=== PATIENT | male | born 1975 | race Caucasian/White ===

== ENCOUNTER 2024-11-01 18:37 | Observation (INO) ==
--- NOTE | 2024-11-01 19:03 | Emergency Department Note ---
Impression & Plan Fever, Pneumonia, Thrombocytopenia, Elevated serum creatinine, Hypoxia, Influenza A (H1N1) ED Provider Note HISTORY OF PRESENT ILLNESS: Patient is a 49-year-old male presenting with fever and fatigue. Patient reports that he developed a fever starting 3 days ago. Reports his temperatures up to 102. He has not taken any antipyretics for the fever today. He states that he recently traveled a month ago to [facility]. He does report substernal chest pain with a cough. Reports the cough has been for the last 3 days and has been nonproductive. Denies any significant shortness of breath. Denies any abdominal pain, nausea or vomiting. Denies any dysuria or hematuria. Denies any recent sick contact exposures. Denies any rashes. He denies any DVT or PE history. Denies any history of cardiac stents. He takes no medications. ROS: as above PHYSICAL EXAM: Constitutional: Patient appears in no acute distress. HENT: Head: Normocephalic and atraumatic. Eyes: EOMI, PERRL Mouth/Throat: Mucous membranes moist. Neck: Trachea midline. Neck supple. Cardiovascular: RRR, No murmurs, rubs or gallops. Intact distal pulses. Pulmonary/Chest: No respiratory distress. Breath sounds clear and equal bilaterally. No wheezes or rales. Abdominal: Abdomen soft, no tenderness, rebound or guarding. Musculoskeletal: No edema, tenderness or deformity noted. Skin: Warm and dry. No rash, erythema, pallor or cyanosis Psychiatric: Appropriate mood and affect for situation. Neurological: Alert and keenly responsive. CN II-XII grossly intact, moving all extremities equally and fully. MDM: - Vitals signs showed hypertension and tachycardia. Patient was significantly tachycardic on arrival to triage, but when brought back to an examination bay his heart rate is in the low 100s. - History obtained via patient. History as above. - Chronic conditions affecting care: None - Differential diagnoses include, but are not limited to: Congestive heart failure; acute coronary syndrome; COPD/asthma exacerbation; pulmonary edema; pulmonary embolism; pneumonia; pneumothorax; viral syndrome - Order placed for continuous cardiac monitoring. At this time, monitor showed rate of 87 bpm with normal sinus rhythm, per my interpretation. - External medical records reviewed. - EKG image interpreted by myself showed normal sinus rhythm. Rate 89 bpm. QT 330. No acute ischemic changes. - Laboratory workup interpreted by myself showed normal WBC; thrombocytopenia (plt 128); normal PT/INR; slight hyponatremia (Na 132); elevated creatinine (1.65 - unknown baseline); normal lactate; normal procalcitonin; normal lipase; normal troponin - CXR image reviewed by myself showed bilateral pneumonia, per my interpretation. Radiology notes patchy bilateral basilar pneumonia left greater than right. - CT PE negative for PE - Blood cultures obtained - Viral respiratory panel positive for influenza A H1N1 - Given patient's symptoms of fever and thrombocytopenia, lyme and babesiosis and anaplasmosis testing ordered. - Patient given 2g IV rocephin and 500 mg PO azithromycin for antibiotic coverage. - Patient given 1L NS.2 He does not meet sepsis criteria at this time. But his sepsis fluid volume calculation based on ideal body weight is 2018.10 mL. - Patient borderline hypoxic in the emergency department with saturations of 89 to 91%. He was started on 2 L nasal cannula. - Discussion was had with case fitter about patient's case and need for admission - Hospitalist consulted for admission - Patient admitted [facility] for further evaluation and management. ASSESSMENT AND PLAN: Diagnosis: Fever; pneumonia; elevated creatinine; thrombocytopenia; influenza A H1N1; hypoxia Plan: admit Past Med/Surg History Problem List (Updated 11/01/24 @ 21:36 by Winifred Magallanes MD) Influenza A (H1N1) (Acute) Hypoxia (Acute) Elevated serum creatinine (Acute) Thrombocytopenia (Acute) Pneumonia (Acute) Fever (Acute) Social History Smoking Status: Never smoker Preferred Language: Zambian Feels Safe at Home: Yes Home Meds Previous Rx's Medication Instructions Recorded diclofenac sodium 75 mg 75 mg PO BID PRN pain #30 tabs 07/20/19 tablet,delayed release Results & Data (ED) Vital Signs Vital Signs - 24 hr 11/01/24 18:56 11/01/24 19:12 11/01/24 19:23 Temperature 37.3 C Temperature Source Oral Pulse Rate 141 H 85 Pulse Rate [Apical] 81 Pulse Rhythm Regular Pulse Rhythm [Apical] Regular Pulse Strength Normal Pulse Strength [Apical] Normal Respiratory Rate 18 18 Respiratory Effort / Characteristics Non-Labored Spontaneous Non-Labored Spontaneous Respiratory Depth Normal Normal Respiratory Pattern Regular Regular Blood Pressure 158/82 H Blood Pressure [Right Arm] 152/116 H Blood Pressure Mean 107 Blood Pressure Mean [Right Arm] 128 Blood Pressure Position Sitting Blood Pressure Position [Right Arm] Lying Pulse Oximetry 91 93 Oxygen Delivery Method Room Air Oxygen Flow Rate 2 Sepsis Recent Fever Within 48 Hours Yes Sepsis New/Unexplained Change in Mental Status N/A Sepsis Action Taken by Nursing No Action Required 11/01/24 19:23 11/01/24 21:00 Temperature Temperature Source Pulse Rate 87 Pulse Rate [Apical] 79 Pulse Rhythm Regular Pulse Rhythm [Apical] Pulse Strength Pulse Strength [Apical] Respiratory Rate 18 19 Respiratory Effort / Characteristics Non-Labored Spontaneous Respiratory Depth Normal Respiratory Pattern Regular Blood Pressure Blood Pressure [Right Arm] 147/92 H Blood Pressure Mean Blood Pressure Mean [Right Arm] 110 Blood Pressure Position Blood Pressure Position [Right Arm] Pulse Oximetry 95 92 Oxygen Delivery Method Nasal Cannula Nasal Cannula Oxygen Flow Rate 2 2 Sepsis Recent Fever Within 48 Hours Sepsis New/Unexplained Change in Mental Status Sepsis Action Taken by Nursing Laboratory Data 11/01/24 19:10 11/01/24 19:10 Lab Results 11/01/24 11/01/24 Range/Units 19:07 19:10 WBC 5.27 (4.8-10.8) K/ul RBC 5.26 (4.70-6.10) M/uL Hgb 15.1 (14.0-18.0) g/dl Hct 45.2 (42.0-52.0) % MCV 85.9 (80.0-100.0) fL MCH 28.7 (25.0-34.0) pg MCHC 33.4 (32.0-36.0) g/dL RDW Std Deviation 39.9 (36.4-46.3) fL RDW Coeff of Kristina 12.8 (11.5-14.5) % Plt Count 128 L (130-400) K/uL MPV 10.2 (9.4-12.4) fL Immature Gran % (Auto) 0.2 % Neut % (Auto) 71.1 % Lymph % (Auto) 17.5 % Terry % (Auto) 10.4 % Eos % (Auto) 0.2 % Baso % (Auto) 0.6 % Neut # (Auto) 3.75 (1.40-6.50) K/uL Lymph # (Auto) 0.92 L (1.20-3.40) K/uL Terry # (Auto) 0.55 (0.11-0.59) K/uL Eos # (Auto) 0.01 (0.00-0.50) K/uL Baso # (Auto) 0.03 (0.00-0.20) K/uL Immature Gran # (Auto) 0.01 (0.01-0.20) K/uL PT 11.6 (9.0-12.0) Seconds INR 1.1 (0.9-1.1) Sodium 132 L (136-145) mmol/L Potassium 4.0 (3.5-5.1) mmol/L Chloride 98 (98-107) mmol/L Carbon Dioxide 25 (21-32) mmol/L Anion Gap 9 (3-11) BUN 16 (6-23) mg/dl Creatinine 1.65 H (0.6-1.4) mg/dl Est Cr Clr Drug Dosing 54.9 ml/min eGFR 49.96 BUN/Creatinine Ratio 9.7 L (10-20) Glucose 97 (70-99(Fasting)) mg/dl Lactate 1.0 (0.4-2.0) mmol/L Calcium 9.3 (8.6-10.3) mg/dl Magnesium 1.8 (1.7-2.4) mg/dl Total Bilirubin 0.8 (0.2-1.0) mg/dl AST 21 (13-39) U/L ALT 15 (7-52) U/L Alkaline Phosphatase 73 (34-104) U/L Troponin I High Sens < 2.3 (0-20) pg/ml Total Protein 8.1 (6.0-8.3) gm/dl Albumin 4.4 (3.4-5.0) gm/dl Globulin 3.7 (2.5-4.0) gm/dl Albumin/Globulin Ratio 1.2 (0.9-2) Lipase 45 (11-82) U/L Procalcitonin 0.10 (0-0.5) ng/ml Nasal Influ A H1 2008 PCR DETECTED A (NotDetected) Adenovirus (PCR) Not Detected (NotDetected) Babesia Smear See Comment B. pertussis DNA (PCR) Not Detected (NotDetected) B.parapertussis DNA PCR Not Detected (NotDetected) C. pneumoniae DNA (PCR) Not Detected (NotDetected) Coronavirus OC43 (PCR) Not Detected (NotDetected) Coronavirus HKU1 (PCR) Not Detected (NotDetected) Coronavirus 229E (PCR) Not Detected (NotDetected) SARS-CoV-2 (PCR) Not Detected (NotDetected) Coronavirus NL63 (PCR) Not Detected (NotDetected) Human Metapneumovir PCR Not Detected (NotDetected) Influenza A (H3) PCR DETECTED A (NotDetected) Influenza Type B (PCR) Not Detected (NotDetected) M. pneumoniae (PCR) Not Detected (NotDetected) Parainfluenza 1 (PCR) Not Detected (NotDetected) Parainfluenza 2 (PCR) Not Detected (NotDetected) Parainfluenza 3 (PCR) Not Detected (NotDetected) Parainfluenza 4 (PCR) Not Detected (NotDetected) RSV (PCR) Not Detected (NotDetected) Entero/Rhino (PCR) Not Detected (NotDetected) Administered Medications Discontinued Medications Azithromycin (Azithromycin 250 Mg Tab) 500 mg PO NOW ONE Stop: 11/01/24 20:38 Last Admin: 11/01/24 20:47 Dose: 500 mg Documented By: FABIO Sodium Chloride (Nss) 1,000 mls @ 999 mls/hr IV .Q1H1M ONE Stop: 11/01/24 20:07 Last Infusion: 11/01/24 21:24 Dose: Infused Documented By: Admin: 11/01/24 19:17 Dose: 999 mls/hr Documented By: FABIO Ceftriaxone Sodium (Rocephin) 2,000 mg in 50 mls @ 100 mls/hr IV NOW STA Stop: 11/01/24 21:06 Last Infusion: 11/01/24 21:24 Dose: Infused Documented By: Admin: 11/01/24 20:49 Dose: 100 mls/hr Documented By: FABIO Ioversol (Optiray 320 125ml) 74 ml IV ONCE ONE Stop: 11/01/24 20:03 Last Admin: 11/01/24 20:02 Dose: 74 ml Documented By: MIREYA Ondansetron HCl (Ondansetron Inj 2 Mg/Ml 2 Ml Vial) 4 mg IV NOW STA Stop: 11/01/24 19:08 Last Admin: 11/01/24 19:18 Dose: 4 mg Documented By: [facility] Imaging Data Radiologist's Impression: Chest X-Ray 11/01/24 19:00 EXAM: Radiograph of the Chest 1 View INDICATION: Fever TECHNIQUE: Frontal view of the chest. COMPARISON: No relevant prior studies available. FINDINGS: Lungs and pleural spaces: There is patchy left retrocardiac infiltrate. Linear scarring or atelectasis right lung base and mild patchy medial right lower lobe infiltrate. No pleural effusion or pneumothorax. Heart: Shape and configuration within normal limits allowing for technique. Mediastinum: Normal contour. Bones/joints: No fracture, erosion or dislocation. Soft tissues: No abnormality noted. No radiopaque foreign body noted. Upper abdomen: No abnormality noted. IMPRESSION: Patchy bilateral basilar pneumonia left greater than right. Follow-up until resolution recommended. ACT 112: N/A Electronically signed by Britt Lowe 11-01-2024 7:40 PM Chest CTA 11/01/24 19:48 Exam(s): CTA CHEST IV Amt: 74ml opti 320 EXAM: CT Angiography Chest With Intravenous Contrast CLINICAL HISTORY: Evaluate for potential PE. TECHNIQUE: Axial computed tomographic angiography images of the chest with intravenous contrast. CTDI is 36.21 mGy and DLP is 739.93 mGy-cm. Automated exposure control was utilized for the study. A dose lowering technique was utilized adhering to the principles of ALARA. MIP reconstructed images were created and reviewed. COMPARISON: No relevant prior studies available. FINDINGS: Limitations: There is diffuse respiratory artifact, which degrades image quality throughout the examination. Pulmonary arteries: Accounting for diffuse respiratory artifact and suboptimal heterogeneous enhancement of the subsegmental pulmonary artery branches, there is no definite evidence for pulmonary embolism. Aorta: No acute findings. No thoracic aortic aneurysm. Lungs: Curvilinear changes noted involving both lower lobes, the inferior right middle lobe and lingular segments. No mass. No consolidation. Pleural space: Unremarkable. No significant effusion. No pneumothorax. Heart: Unremarkable. No cardiomegaly. No significant pericardial effusion. Bones/joints: No acute fracture. No dislocation. Soft tissues: Unremarkable. Lymph nodes: Unremarkable. No enlarged lymph nodes. IMPRESSION: 1. Accounting for diffuse respiratory artifact and suboptimal heterogeneous enhancement of the subsegmental pulmonary artery branches, there is no definite evidence for pulmonary embolism. 2. Curvilinear changes noted involving both lower lobes, the inferior right middle lobe and lingular segments. Favor subsegmental atelectasis with expiratory lung volumes; however, subtle coexisting infection the lower lobes is difficult to entirely exclude. Please correlate with potential clinical history not provided and laboratory findings. No pleural effusion or pneumothorax. Electronically signed by: Anuel Raines MD 11/01/24 21:31 PM Discharge Plan Visit Data Chief Complaint: Fever Stated Complaint: FEVER,?DEHYDRATED,NOT EATING ED Provider: Winifred Magallanes Discharge Problem: Fever, Pneumonia, Thrombocytopenia, Elevated serum creatinine, Hypoxia, Influenza A (H1N1) Forms Stand Alone Forms: [facility] Prescriptions Prescriptions: No Action diclofenac sodium 75 mg tablet,delayed release (DR/EC) 75 mg PO BID PRN (Reason: pain) Qty: 30 0RF Referrals Referrals: PCP,NO [Primary Care Provider] -
[2024-11-01] MEDS: SODIUM CHLORIDE 0.9% 1,000 ML IV ONE (19:17)
[2024-11-01] MEDS: ONDANSETRON INJ 2 MG/ML 2 ML VIAL IV STA (19:18)
[2024-11-01 19:33] LABS: Basophils # (auto) 0.03 K/uL (0.00-0.20); Basophils % (auto) 0.6 %; Eosinophils # (auto) 0.01 K/uL (0.00-0.50); Eosinophils % (auto) 0.2 %; Hematocrit (blood only) 45.2 % (42.0-52.0); Hemoglobin 15.1 g/dl (14.0-18.0); Immature Granulocytes # (auto) 0.01 K/uL (0.01-0.20); Immature Granulocytes % (auto) 0.2 %; Lymphocytes # (auto) 0.92 K/uL (1.20-3.40); Lymphocytes % (auto) 17.5 %; Mean Corpuscular Hemoglobin 28.7 pg (25.0-34.0); Mean Corpuscular Hgb Conc 33.4 g/dL (32.0-36.0); Mean Corpuscular Volume 85.9 fL (80.0-100.0); Mean Platelet Volume 10.2 fL (9.4-12.4); Monocytes # (auto) 0.55 K/uL (0.11-0.59); Monocytes % (auto) 10.4 %; Neutrophils # (auto) 3.75 K/uL (1.40-6.50); Neutrophils % (auto) 71.1 %; Platelet Count 128 K/uL (130-400); RDW Coefficient of Variation 12.8 % (11.5-14.5); RDW Standard Deviation 39.9 fL (36.4-46.3); Red Blood Count 5.26 M/uL (4.70-6.10); White Blood Count 5.27 K/ul (4.8-10.8)
--- NOTE | 2024-11-01 19:41 | XRay Report ---
EXAM: Radiograph of the Chest 1 View INDICATION: Fever TECHNIQUE: Frontal view of the chest. COMPARISON: No relevant prior studies available. FINDINGS: Lungs and pleural spaces: There is patchy left retrocardiac infiltrate. Linear scarring or atelectasis right lung base and mild patchy medial right lower lobe infiltrate. No pleural effusion or pneumothorax. Heart: Shape and configuration within normal limits allowing for technique. Mediastinum: Normal contour. Bones/joints: No fracture, erosion or dislocation. Soft tissues: No abnormality noted. No radiopaque foreign body noted. Upper abdomen: No abnormality noted. IMPRESSION: Patchy bilateral basilar pneumonia left greater than right. Follow-up until resolution recommended. ACT 112: N/A Electronically signed by Britt Lowe 11-01-2024 7:40 PM
[2024-11-01 19:48] LABS: Alanine Aminotransferase 15 U/L (7-52); Albumin Globulin Ratio 1.2 (0.9-2); Albumin Level 4.4 gm/dl (3.4-5.0); Alkaline Phosphatase 73 U/L (34-104); Anion Gap 9 (3-11); Aspartate Aminotransferase 21 U/L (13-39); BUN Creatinine Ratio 9.7 (10-20); Bilirubin,Total 0.8 mg/dl (0.2-1.0); Blood Urea Nitrogen 16 mg/dl (6-23); Calcium 9.3 mg/dl (8.6-10.3); Carbon Dioxide 25 mmol/L (21-32); Chloride 98 mmol/L (98-107); Creatinine Clr Calc Pharmacy 54.9 ml/min; Globulin 3.7 gm/dl (2.5-4.0); Glucose 97 mg/dl (70-99(Fasting)); Lipase 45 U/L (11-82); Magnesium 1.8 mg/dl (1.7-2.4); Sodium 132 mmol/L (136-145); Total Protein 8.1 gm/dl (6.0-8.3)
[2024-11-01 19:53] LABS: Troponin I High Sensitivity < 2.3 pg/ml (0-20)
[2024-11-01 19:54] LABS: INR 1.1 (0.9-1.1); Prothrombin Time 11.6 Seconds (9.0-12.0)
[2024-11-01] MEDS: OPTIRAY 320 125ml IV ONE (20:02)
[2024-11-01] MEDS: AZITHROMYCIN 250 MG TAB PO ONE (20:47)
[2024-11-01] MEDS: cefTRIAXone SODIUM 2,000 MG/50 ML BAG IV STA (20:49)
[2024-11-01 21:29] LABS: Adenovirus PCR Not Detected (NotDetected); Bordetella parapertussis PCR Not Detected (NotDetected); Bordetella pertussis PCR Not Detected (NotDetected); Chlamydia pneumoniae PCR Not Detected (NotDetected); Coronavirus 229E PCR Not Detected (NotDetected); Coronavirus CoV-2 (COVID19)PCR Not Detected (NotDetected); Coronavirus HKU1 PCR Not Detected (NotDetected); Coronavirus NL63 PCR Not Detected (NotDetected); Coronavirus OC43PCR Not Detected (NotDetected); Human Metapneumovirus PCR Not Detected (NotDetected); Influenza A (H1 2009) PCR DETECTED (NotDetected); Influenza A (H3) PCR DETECTED (NotDetected); Influenza B PCR Not Detected (NotDetected); Mycoplasma pneumoniae PCR Not Detected (NotDetected); Parainfluenza Virus 1 PCR Not Detected (NotDetected); Parainfluenza Virus 2 PCR Not Detected (NotDetected); Parainfluenza Virus 3 PCR Not Detected (NotDetected); Parainfluenza Virus 4 PCR Not Detected (NotDetected); Respiratory Syncytial VirusPCR Not Detected (NotDetected); Rhinovirus/Enterovirus PCR Not Detected (NotDetected)
--- NOTE | 2024-11-01 21:32 | CT Scan Report ---
Exam(s): CTA CHEST IV Amt: 74ml opti 320 EXAM: CT Angiography Chest With Intravenous Contrast CLINICAL HISTORY: Evaluate for potential PE. TECHNIQUE: Axial computed tomographic angiography images of the chest with intravenous contrast. CTDI is 36.21 mGy and DLP is 739.93 mGy-cm. Automated exposure control was utilized for the study. A dose lowering technique was utilized adhering to the principles of ALARA. MIP reconstructed images were created and reviewed. COMPARISON: No relevant prior studies available. FINDINGS: Limitations: There is diffuse respiratory artifact, which degrades image quality throughout the examination. Pulmonary arteries: Accounting for diffuse respiratory artifact and suboptimal heterogeneous enhancement of the subsegmental pulmonary artery branches, there is no definite evidence for pulmonary embolism. Aorta: No acute findings. No thoracic aortic aneurysm. Lungs: Curvilinear changes noted involving both lower lobes, the inferior right middle lobe and lingular segments. No mass. No consolidation. Pleural space: Unremarkable. No significant effusion. No pneumothorax. Heart: Unremarkable. No cardiomegaly. No significant pericardial effusion. Bones/joints: No acute fracture. No dislocation. Soft tissues: Unremarkable. Lymph nodes: Unremarkable. No enlarged lymph nodes. IMPRESSION: 1. Accounting for diffuse respiratory artifact and suboptimal heterogeneous enhancement of the subsegmental pulmonary artery branches, there is no definite evidence for pulmonary embolism. 2. Curvilinear changes noted involving both lower lobes, the inferior right middle lobe and lingular segments. Favor subsegmental atelectasis with expiratory lung volumes; however, subtle coexisting infection the lower lobes is difficult to entirely exclude. Please correlate with potential clinical history not provided and laboratory findings. No pleural effusion or pneumothorax. Electronically signed by: Anuel Raines MD 11/01/24 21:31 PM
--- NOTE | 2024-11-01 22:19 | History & Physical Report ---
Date of Service November 01, 2024 Assessment & Plan (1) Influenza A (H1N1): (2) Pneumonia: (3) Thrombocytopenia: (4) Renal insufficiency: Plan 49-year-old male with unremarkable PMHx presenting for fever x 2 days. ED evaluation reveals no leukocytosis, platelets 128 with stable H&H; PT/INR WNL; sodium 132, creatinine 1.65, ratio 9.7; troponin <2.3; Pro-Gabriel 0.10; BioFire positive influenza A; UA pending; CXR with patchy bilateral basilar PNA L >R; chest CTA no PE, subsegmental atelectasis with expiratory low lung volumes, possible infection EKG NSR at 89 bpm. Provided with 1L NSS, ondansetron, Rocephin, and azithromycin in ED. #Influenza A/? PNA Fever 102 F x 2 days is main concern; Was requiring 2L O2 for hypoxia. Does not receive annual influenza vaccine. - CBC w/o leukocytosis but with Plt 128; CMP Na 132, Cr 1.65, procal 0.10; nasal swab/BioFire positive for influenza A; CXR w/ evidence PNA and CTA chest w/ ? subsegmental atelectasis vs infection in lower lobes - Droplet precautions - Start Tamiflu 30mg BID (CrCl 54.9 mL/min) - Given CTA chest findings + CXR - Ceftriaxone IV + Azithromycin po - DuoNeb q4hr + prn; Tylenol for fever/pain; Mucinex prn congestion - IC + FV; O2 prn, wean as patient tolerates if needed- No O2 at baseline - CBC + CMP am #Thrombocytopenia New finding; patient w/o history of such. Recent bleeding ~ 2 weeks ago with blood being passed through stool on occasion, pt unsure if he has hemorrhoids. Colonoscopy ~ 2.5 years ago was WNL. ? Tick exposure vs contributed by renal insufficiency. - CBC H/H stable (15.1/45.2), Plt 132 - Tick panel pending - CBC am #Renal insufficiency/S/p L nephrectomy (donor) H/o L nephrectomy ~ 2.5 years ago (donor for mother); Some decrease in oral intake, does follow low Na diet. - Cr 1.65, BUN 16, ratio 9.7; UA pending - CMP am - Given 1L NSS in ED; continue Plasmalyte @ 100mL/hr - Defer nephrotoxic agents; Tylenol prn - If Cr continues to increase, consider renal US Dispo: Admit, med/tele VTE prophylaxis: SCDs This document was dictated utilizing [employer]nos. Please excuse any grammatical errors that may be secondary to use of this software. Admission and Anticipated Discharge Date Admission Date: 11/01/2024 History of Present Illness Chief Complaint: Fever Primary Care Provider: NO PCP 49-year-old male with unremarkable PMHx presenting for fever x 2 days. States that for probably 2 days [employer], patient has had a fever 102 F consistently and has not taken antipyretics to try to alleviate this. Only other complaint is that he does have a cough that is nonproductive in nature. Some rhinorrhea when leaning forward and minimal sinus congestion. Does not feel that he has been SOB but has not been getting up and moving around a lot since having a fever. Denies chest pain, palpitations, abdominal pain, N/V/D/C, or LUTS. Does admit to approximately 2 weeks ago having blood passed in stool but patient unsure if he has hemorrhoids, does not feel that he has to strain. Colonoscopy approximately 2 and half years ago without any concerning findings, also with left nephrectomy approximately 2 years ago as he donated his L kidney to his mother. 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 ED evaluation reveals no leukocytosis, platelets 128 with stable H&H; PT/INR WNL; sodium 132, creatinine 1.65, ratio 9.7; troponin <2.3; Pro-Gabriel 0.10; BioFire positive influenza A; UA pending; CXR with patchy bilateral basilar PNA L >R; chest CTA no PE, subsegmental atelectasis with expiratory low lung volumes, possible infection EKG NSR at 89 bpm. Provided with 1L NSS, ondansetron, Rocephin, and azithromycin in ED. Please see Dr. Rojas's attestation for adjustments/additions to treatment plan. Allergies Allergy/AdvReac Type Severity Reaction Status Date / Time No Known Allergies Allergy Unverified 11/01/24 22:40 Home Medications Medication Instructions Recorded Confirmed Type No Known Home Medications 11/01/24 11/01/24 History Past Med/Surg History Problem List (Updated 11/01/24 @ 23:07 by Dariana Adames PA-C) Renal insufficiency Influenza A (H1N1) (Acute) Hypoxia (Acute) Elevated serum creatinine (Acute) Thrombocytopenia (Acute) Pneumonia (Acute) Fever (Acute) Social History Smoking Status: Never smoker Preferred Language: Mexican Feels Safe at Home: Yes Review of Systems Review of Systems: All systems reviewed & are unremarkable except as noted in Subjective Physical Exam Physical Exam: General: No acute distress Skin: Warm and dry Head: Normocephalic, atraumatic Eyes: PERRL, conjunctivae clear, sclera non-icteric ENT: External ear and ear canal without swelling; nose atraumatic; good dent ition, tongue normal appearance, pharynx normal Neck: Supple, no LAD Cardio: RRR, no M/G/R, S1 and S2 normal Resp: No respiratory distress, Lungs CTA in all lobes bilaterally, no wheezes, rales, or rhonchi Abdomen: Soft, symmetric, nontender; No visible lesions or scars; no distention; No masses or hepatosplenomegaly; Bowel sounds normoactive MSK: No deformities; pulses palpable and equal; no edema. Neuro: Awake, alert; CN grossly intact Psych: Appropriate mood and affect; good judgement and insight. present in room at time of visit. Results & Data Results & Data Vital Signs (Past 12 Hours) Vital Signs Temp Pulse Pulse Resp BP BP Pulse Ox 11/01/24 21:00 79 19 147/92 H 92 11/01/24 19:23 87 18 95 11/01/24 19:23 81 18 152/116 H 93 11/01/24 19:12 85 11/01/24 18:56 37.3 C 141 H 18 158/82 H 91 O2 Del Method O2 Flow Rate 11/01/24 21:00 Nasal Cannula 2 11/01/24 19:23 Nasal Cannula 2 11/01/24 19:23 2 11/01/24 19:12 11/01/24 18:56 Room Air Laboratory Results 11/01/24 19:31 Aerobic Blood Culture - Pending Blood Anaerobic Blood Culture - Pending 11/01/24 19:10 Aerobic Blood Culture - Pending Blood Anaerobic Blood Culture - Pending 11/01/24 11/01/24 19:10 19:07 WBC 5.27 RBC 5.26 Hgb 15.1 Hct 45.2 MCV 85.9 MCH 28.7 MCHC 33.4 RDW Std Deviation 39.9 RDW Coeff of Kristina 12.8 Plt Count 128 L MPV 10.2 Immature Gran % (Auto) 0.2 Neut % (Auto) 71.1 Lymph % (Auto) 17.5 [place] % (Auto) 10.4 Eos % (Auto) 0.2 Baso % (Auto) 0.6 Neut # (Auto) 3.75 Lymph # (Auto) 0.92 L [place] # (Auto) 0.55 Eos # (Auto) 0.01 Baso # (Auto) 0.03 Immature Gran # (Auto) 0.01 PT 11.6 INR 1.1 Sodium 132 L Potassium 4.0 Chloride 98 Carbon Dioxide 25 Anion Gap 9 BUN 16 Creatinine 1.65 H Est Cr Clr Drug Dosing 54.9 eGFR 49.96 BUN/Creatinine Ratio 9.7 L Glucose 97 Lactate 1.0 Calcium 9.3 Magnesium 1.8 Total Bilirubin 0.8 AST 21 ALT 15 Alkaline Phosphatase 73 Troponin I High Sens < 2.3 Total Protein 8.1 Albumin 4.4 Globulin 3.7 Albumin/Globulin Ratio 1.2 Lipase 45 Procalcitonin 0.10 Nasal Influ A H1 2008 PCR DETECTED A Adenovirus (PCR) Not Detected Anaplasma Smear See Comment Babesia Smear See Comment B. pertussis DNA (PCR) Not Detected B.parapertussis DNA PCR Not Detected Lyme Disease Screen Negative C. pneumoniae DNA (PCR) Not Detected Coronavirus OC43 (PCR) Not Detected Coronavirus HKU1 (PCR) Not Detected Coronavirus 229E (PCR) Not Detected SARS-CoV-2 (PCR) Not Detected Coronavirus NL63 (PCR) Not Detected Human Metapneumovir PCR Not Detected Influenza A (H3) PCR DETECTED A Influenza Type B (PCR) Not Detected M. pneumoniae (PCR) Not Detected Parainfluenza 1 (PCR) Not Detected Parainfluenza 2 (PCR) Not Detected Parainfluenza 3 (PCR) Not Detected Parainfluenza 4 (PCR) Not Detected RSV (PCR) Not Detected Entero/Rhino (PCR) Not Detected Diagnostic Findings Chest X-Ray 11/01/24 19:00 EXAM: Radiograph of the Chest 1 View INDICATION: Fever TECHNIQUE: Frontal view of the chest. COMPARISON: No relevant prior studies available. FINDINGS: Lungs and pleural spaces: There is patchy left retrocardiac infiltrate. Linear scarring or atelectasis right lung base and mild patchy medial right lower lobe infiltrate. No pleural effusion or pneumothorax. Heart: Shape and configuration within normal limits allowing for technique. Mediastinum: Normal contour. Bones/joints: No fracture, erosion or dislocation. Soft tissues: No abnormality noted. No radiopaque foreign body noted. Upper abdomen: No abnormality noted. IMPRESSION: Patchy bilateral basilar pneumonia left greater than right. Follow-up until resolution recommended. ACT 112: N/A Electronically signed by Britt Lowe 11-01-2024 7:40 PM Chest CTA 11/01/24 19:48 Exam(s): CTA CHEST IV Amt: 74ml opti 320 EXAM: CT Angiography Chest With Intravenous Contrast CLINICAL HISTORY: Evaluate for potential PE. TECHNIQUE: Axial computed tomographic angiography images of the chest with intravenous contrast. CTDI is 36.21 mGy and DLP is 739.93 mGy-cm. Automated exposure control was utilized for the study. A dose lowering technique was utilized adhering to the principles of ALARA. MIP reconstructed images were created and reviewed. COMPARISON: No relevant prior studies available. FINDINGS: Limitations: There is diffuse respiratory artifact, which degrades image quality throughout the examination. Pulmonary arteries: Accounting for diffuse respiratory artifact and suboptimal heterogeneous enhancement of the subsegmental pulmonary artery branches, there is no definite evidence for pulmonary embolism. Aorta: No acute findings. No thoracic aortic aneurysm. Lungs: Curvilinear changes noted involving both lower lobes, the inferior right middle lobe and lingular segments. No mass. No consolidation. Pleural space: Unremarkable. No significant effusion. No pneumothorax. Heart: Unremarkable. No cardiomegaly. No significant pericardial effusion. Bones/joints: No acute fracture. No dislocation. Soft tissues: Unremarkable. Lymph nodes: Unremarkable. No enlarged lymph nodes. IMPRESSION: 1. Accounting for diffuse respiratory artifact and suboptimal heterogeneous enhancement of the subsegmental pulmonary artery branches, there is no definite evidence for pulmonary embolism. 2. Curvilinear changes noted involving both lower lobes, the inferior right middle lobe and lingular segments. Favor subsegmental atelectasis with expiratory lung volumes; however, subtle coexisting infection the lower lobes is difficult to entirely exclude. Please correlate with potential clinical history not provided and laboratory findings. No pleural effusion or pneumothorax. Electronically signed by: Anuel Raines MD 11/01/24 21:31 PM Medications Administered NSS 1L Ondansetron 4 megs IV Ceftriaxone 2 g IV Azithromycin 500 mg p.o. ECG Additional Comments: NSR, nonspecific T wave abnormality 89 bpm, FL 152, QRS 80, QT/QTc 330/401, PRT 40/36/32 Code Status & VTE Plan Code Status Full Supervising Physician Co-Signing Physician Notes Attending addendum: I have physically seen this patient, have supervised the GLORIA's activities, and agree with the H&P unless as otherwise noted. Assessment and Plan: The patient is a 49-year-old male with past medical history significant for history of left nephrectomy as an organ donor, who presents to the emergency department with 3 days of feeling generally unwell, and 2 days of temperature up to 102 F. Significant evaluation in the emergency department includes platelets of 128, sodium 132, creatinine 1.65, BioFire testing positive for influenza A H1 2009 pandemic strain, chest x-ray suggestive of patchy bilateral basilar pneumonia, left greater than right, and chest CTA negative for PE. From the ED patient received the following: Normal saline 1 L bolus, Zofran 4 mg IV, ceftriaxone 2 g IV, and azithromycin 100 mg p.o. [facility] #[facility]fluenza A 2009 pandemic strain/bibasilar secondary bacterial pneumonia, right greater than left- Start Tamiflu renally adjusted dosing Droplet precautions Duonebs every 4 hours while awake and every 2 hours when necessary. Mucinex 600 mg p.o. every 12 hours Incentive spirometry Nasal cannula oxygen, titrate to keep pulse ox 92-94% Placed on ceftriaxone 2 g IV every 24 hours, and azithromycin 500 mg daily #Renal insufficiency/history of left nephrectomy as organ donor- Creatinine 1.65, with no baseline available Aggressively hydrate with IV fluids, recheck laboratories in the morning, if not significantly improved, pursue imaging at that time Status post 1 L normal saline bolus from the ED #Thrombocytopenia- Platelets 128 on admission, with no baseline Contributing factors including but not limited to: Viral process, tick exposure, renal insufficiency, others Pending results if lower in the morning, would do a peripheral smear PG Care Time/CCT Total # of Minutes Spent Total Time Spent with Patient: Total time spent is greater than 50% in coordination of care (as documented) at patient's floor/unit and/or counseling patient: Coding Level of Care Code 50449 INT INP/OBS CARE 3/75MIN Diagnoses Influenza A (H1N1) J10.1 Pneumonia J18.9 Thrombocytopenia D69.6 Renal insufficiency N28.9
[2024-11-01] MEDS ORDERED: guaiFENesin 600 MG TABCR PO PRN (23:08)
[2024-11-01] MEDS ORDERED: ALBUT/IPRATROP 3MG/0.5MG NEB 3 ML VIAL NEB PRN (23:08)
[2024-11-01] MEDS: PLASMA-LYTE A 1,000 ML IV SCH (23:46)
[2024-11-02] MEDS: OSELTAMIVIR PHOSPHATE SUSP 30 MG/5 ML UDP PO STA (00:28)
[2024-11-02] MEDS ORDERED: ONDANSETRON INJ 2 MG/ML 2 ML VIAL IV PRN (01:27)
[2024-11-02] MEDS ORDERED: POLYETHYLENE (MIRALAX) 17 GM PACK PO PRN (01:27)
[2024-11-02 04:41] VITALS: TEMP 99.3
[2024-11-02] MEDS: ACETAMINOPHEN 325 MG TAB PO PRN (04:43)
[2024-11-02 04:46] LABS: Hematocrit (blood only) 40.3 % (42.0-52.0); Hemoglobin 13.6 g/dl (14.0-18.0); Mean Corpuscular Hemoglobin 28.9 pg (25.0-34.0); Mean Corpuscular Hgb Conc 33.7 g/dL (32.0-36.0); Mean Corpuscular Volume 85.6 fL (80.0-100.0); Mean Platelet Volume 10.6 fL (9.4-12.4); Platelet Count 111 K/uL (130-400); RDW Coefficient of Variation 12.8 % (11.5-14.5); RDW Standard Deviation 39.9 fL (36.4-46.3); Red Blood Count 4.71 M/uL (4.70-6.10); White Blood Count 4.26 K/ul (4.8-10.8)
[2024-11-02 04:59] LABS: Albumin Globulin Ratio 1.3 (0.9-2); Albumin Level 3.7 gm/dl (3.4-5.0); BUN Creatinine Ratio 10.3 (10-20); Bilirubin,Total 0.6 mg/dl (0.2-1.0); Calcium 8.2 mg/dl (8.6-10.3); Creatinine Clr Calc Pharmacy 58.5 ml/min; Globulin 2.9 gm/dl (2.5-4.0); Potassium 4.1 mmol/L (3.5-5.1); Total Protein 6.6 gm/dl (6.0-8.3)
[2024-11-02] MEDS: OSELTAMIVIR PHOSPHATE SUSP 30 MG/5 ML UDP PO SCH (09:59)
--- NOTE | 2024-11-02 14:14 | Discharge Summary ---
Discharge Summary Date of Service November 02, 2024 Principal Dx & Hospital Course #1 = Principal Diagnosis (1) Influenza A (H1N1): (2) Thrombocytopenia: (3) Renal insufficiency: Plan 49-year-old male with unremarkable PMHx presented for fever, cough, body aches x 2 days. BioFire testing positive for Influenza A on admission. ED evaluation reveals no leukocytosis, platelets 128 with stable H&H; PT/INR WNL; sodium 132, creatinine 1.65, ratio 9.7; troponin <2.3; Pro-Gabriel 0.10; BioFire positive influenza A; UA pending; CXR with patchy bilateral basilar PNA L >R; chest CTA no PE, subsegmental atelectasis with expiratory low lung volumes, possible infection EKG NSR at 89 bpm. Provided with 1L NSS, ondansetron, Rocephin, and azithromycin in ED. #Influenza A - Required 2L O2 for hypoxia on admission, weaned down and stable on room air now - CXR with concern for pneumonia, chest CTA favors subsegmental atelectasis with expiratory lung volumes - Received ceftriaxone and azithromycin on admission; antibiotics discontinued given low suspicion for bacterial process - Continue Tamiflu 30 mg BID through 11/06 - Continue Tylenol PRN fever/body aches/headache, Zofran PRN nausea, Mucinex PRN cough/congestion, incentive spirometry #Thrombocytopenia New finding; patient w/o history of such. Recent bleeding ~ 2 weeks ago with blood being passed through stool on occasion, pt unsure if he has hemorrhoids. Colonoscopy ~ 2.5 years ago was WNL Suspect viral suppression vs contributed by renal insufficiency Stable #Renal insufficiency/S/p L nephrectomy (donor) H/o L nephrectomy ~ 2.5 years ago (donor for mother); Some decrease in oral intake, does follow low Na diet - Given 1L NSS in ED; continue Plasmalyte @ 100mL/hr - Cr 1.55, BUN 16 on day of discharge - Defer nephrotoxic agents; Tylenol prn Dispo: discharged home 11/02 VTE prophylaxis: SCDs Notes For Next Care Provider Suspect thrombocytopenia due to viral suppression from influenza A. If persists outpatient, recommend further workup Medication Changes From Visit Tamiflu 30 mg PO BID through 11/06 Zofran 4 mg q6h prn nausea Admission HPI Per Admitting Provider 49-year-old male with unremarkable PMHx presenting for fever x 2 days. 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 Only other complaint is that he does have a cough that is nonproductive in nature. Some rhinorrhea when leaning forward and minimal sinus congestion. Does not feel that he has been SOB but has not been getting up and moving around a lot since having a fever. Denies chest pain, palpitations, abdominal pain, N/V/D/C, or LUTS. Does admit to approximately 2 weeks ago having blood passed in stool but patient unsure if he has hemorrhoids, does not feel that he has to strain. Colonoscopy approximately 2 and half years ago without any concerning findings, also with left nephrectomy approximately 2 years ago as he donated his L kidney to his mother. 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 ED evaluation reveals no leukocytosis, platelets 128 with stable H&H; PT/INR WNL; sodium 132, creatinine 1.65, ratio 9.7; troponin <2.3; Pro-Gabriel 0.10; B ioFire positive influenza A; UA pending; CXR with patchy bilateral basilar PNA L >R; chest CTA no PE, subsegmental atelectasis with expiratory low lung volumes, possible infection EKG NSR at 89 bpm. Provided with 1L NSS, ondansetron, Rocephin, and azithromycin in ED. Please see Dr. Rojas's attestation for adjustments/additions to treatment plan. Admission Exam Per Admitting Provider General: No acute distress Skin: Warm and dry Head: Normocephalic, atraumatic Eyes: PERRL, conjunctivae clear, sclera non-icteric ENT: External ear and ear canal without swelling; nose atraumatic; good dentition, tongue normal appearance, pharynx normal Neck: Supple, no LAD Cardio: RRR, no M/G/R, S1 and S2 normal Resp: No respiratory distress, Lungs CTA in all lobes bilaterally, no wheezes, rales, or rhonchi Abdomen: Soft, symmetric, nontender; No visible lesions or scars; no distention; No masses or hepatosplenomegaly; Bowel sounds normoactive MSK: No deformities; pulses palpable and equal; no edema. Neuro: Awake, alert; CN grossly intact Psych: Appropriate mood and affect; good judgement and insight. present in room at time of visit. Discharge Exam General: No acute distress, nondiaphoretic, well-developed, well-nourished. Cardiac: Regular rate and rhythm without murmurs gallops or rubs. Pulm: Clear to auscultation bilaterally without wheezes, rales or rhonchi. Normal respiratory effort. 97% on room air. Abdominal: Soft, nontender, nondistended. Bowel sounds present. Neuro: A&O x3. No focal neurological deficits. Discharge Plan Discharge Items Patient Disposition: Home - Self-Care Reason For Visit: INFLUENZA A Discharge Diagnosis: Influenza A Condition on Discharge: Good Activity: Per Instructions section Non-emergency contact: Primary Care Provider Call non-emergency contact if: you have any medication questions and your symptoms worsen Follow-up/Referrals: PCP,NO [Primary Care Provider] - Diet: Regular Addtl Attending Provider Instructions: Mr. Do, You were observed overnight in the hospital due to having low oxygen levels (hypoxia) associated with Influenza A ("the flu"). The flu is likely the cause of your fever, body aches, cough, and diarrhea at home. You were weaned off supplemental oxygen and have remained stable on room air. Upon discharge from the hospital: * Continue Tamiflu twice daily through 11/06/24. You can take your evening dose tonight (11/02). This medicine helps lessen your flu symptoms and shorten your duration of flu symptoms. * Take Tylenol as needed for headache/body aches. This is available over the counter. * Take Zofran 4 mg every 6 hours as needed for nausea. * Take Mucinex as needed for congestion/cough. This is available over the counter. * Use your incentive spirometer as directed. I recommend using this for the next week. * Recommend resting for the next few days until you feel closer to your baseline. * Follow-up with your PCP in 1-2 weeks. It was a pleasure taking care of you while you were in the hospital! Pending Studies at Discharge: No Stand-Alone Forms: My [facility], Smoking Cessation Medications and DC Order Prescriptions: New oseltamivir [Tamiflu] 30 mg capsule 30 mg PO BID Qty: 8 0RF ondansetron HCl 4 mg tablet 4 mg PO Q6H PRN (Reason: nausea and vomiting) Qty: 10 0RF Discharge Orders: Discharge Order (Routine); Ordered 11/02/24 Ordered By: dAe Trevino/Other Patient Handouts: ED Influenza (Adult) Admission Data Admit Date/Time: 11/02/24 01:14 Attending Provider: Ade Turner Admit Provider: Gagan Rojas Primary Care Provider: PCP,NO Other Providers: Gagan Rojas Other Interventions: Discharge Summary Assessment (RN) Last Done: 11/02/24 15:16 Hospital Stay Data Consultations 11/01/24 21:16 ED Decision to Admit Stat Diagnostic Imagining Performed 11/01/24 19:48 CT for pulmonary embolism PE [CT angio chest PE protocol] Stat Pending Results Patient Have Any Pending Studies at Discharge: No Discharge Instructions Given to Patient (Per Discharging Provider) Tej Echols were observed overnight in the hospital due to having low oxygen levels (hyp oxia) associated with Influenza A ("the flu"). The flu is likely the cause of your fever, body aches, cough, and diarrhea at home. You were weaned off supplemental oxygen and have remained stable on room air. Upon discharge from the hospital: * Continue Tamiflu twice daily through 11/06/24. You can take your evening dose tonight (11/02). This medicine helps lessen your flu symptoms and shorten your duration of flu symptoms. * Take Tylenol as needed for headache/body aches. This is available over the counter. * Take Zofran 4 mg every 6 hours as needed for nausea. * Take Mucinex as needed for congestion/cough. This is available over the counter. * Use your incentive spirometer as directed. I recommend using this for the next week. * Recommend resting for the next few days until you feel closer to your baseline. * Follow-up with your PCP in 1-2 weeks. It was a pleasure taking care of you while you were in the hospital! Total Time Total Time Spent Total Time Spent (In Minutes): Greater than 30 minutes spent completing this discharge process including direct patient care, medication reconciliation, documentation, review of labs and images, and coordination of care. Coding Level of Care Code 54259 INP/OBS DISCH >30 MIN Diagnoses Influenza A (H1N1) J10.1 Thrombocytopenia D69.6 Renal insufficiency N28.9
[2024-11-02 14:42] VITALS: O2SAT 96
[2024-11-02 15:19] VITALS: BP 136/88; PULSE 68; RESP 18
[2024-11-02] MEDS ORDERED: AZITHROMYCIN 250 MG TAB PO SCH (21:00)
[2024-11-02] MEDS ORDERED: cefTRIAXone SODIUM 2,000 MG/50 ML BAG IV SCH (21:00)
--- NOTE | 2024-11-02 23:20 | Electrocardiogram Report ---
Test Reason : Blood Pressure : */* mmHG Vent. Rate : 89 BPM Atrial Rate : 89 BPM P-R Int : 152 ms QRS Dur : 80 ms QT Int : 330 ms P-R-T Axes : 40 36 32 degrees QTcB Int : 401 ms Normal sinus rhythm Nonspecific T wave abnormality Abnormal ECG No previous ECGs available Confirmed by Theron Maldonado ([id number]) on 11/02/2024 11:19:56 PM Referred By: REFERRED SELF Confirmed By: Theron Maldonado
== END 2024-11-02 15:25 | disposition home or self-care (01) ==
LOC: EDINP 18:37 → ED 18:37 → SUATTDRO 11-02 01:14 → EDINP 11-02 01:26